=== PATIENT | female | born 1975 ===

== ENCOUNTER 2023-06-16 12:08 | Outpatient (CLI) | payer OTHER, SELFPAY ==
--- NOTE | 2023-06-16 12:13 | US_ITS ---
WS: [id number] ULTRASOUND ABDOMEN CLINICAL INFORMATION: ABDOMINAL PAIN COMPARISON: None. FINDINGS: Liver Size: Upper limits of normal Craniocaudal length: 15.6 cm. Echogenicity: Coarse and echogenic Surface nodularity: None. Mass (size and location): None. Bile ducts Intrahepatic ducts: Normal. Common bile duct diameter: 0.5 cm. Gallbladder Prior cholecystectomy. Pancreas Normal as visualized. Spleen Splenomegaly: None. Craniocaudal length: 10.2 cm. Right kidney: Normal. Hydronephrosis: None. Size: 9.1 cm x 5.4 cm x 5.9 cm Left kidney: Normal. Hydronephrosis: None. Size: 10.4 cm x 4.7 cm x 5.6 cm. Abdominal aorta and IVC Visualized portions are normal. Ascites: None. IMPRESSION: 1. Prior cholecystectomy. Normal common bile duct. 2. Liver size upper limits of normal. Coarse hepatic echogenicity likely due to fatty infiltration 3. No hydronephrosis in either kidney. 4. Normal spleen.
== END 2023-06-16 12:09 | disposition home or self-care (01) ==
LOC: RAD 12:09
PROVIDERS: PCP Internal Medicine; Visit Provider Family Medicine
DX: R10.9 Unspecified abdominal pain (principal); Z90.49 Acquired absence of other specified parts of digestive tract
CPT/HCPCS: 76700

== ENCOUNTER 2023-07-19 15:05 | Outpatient (CLI) | payer OTHER, SELFPAY ==
--- NOTE | 2023-07-19 15:09 | MR_ITS ---
WS: [id number] MRI LUMBAR SPINE NONCONTRAST HISTORY: RADICULOPATHY/SCIATICA/DORSALGIA COMPARISON: None available. TECHNIQUE: Sagittal and axial multisequence imaging is submitted. Small disc osteophytes in the cervical spine. Slight encroachment at C6-7 upon the cervical cord. The re additional thoracic spine central disc protrusions. There may be slight cord contact at several le vels including T5-6. No cord compression. Normal lumbar alignment with no compression fractures or marrow edema. Disc spaces and vertebral body heights are well-preserved. Conus terminates normally at L1-2 disc level. L1-L2: Normal. L2-L3: Mild annular disc bulging with ligamentum flavum and facet arthritis. Mild encroachment upon t he subarticular recesses. Mild bilateral subarticular recess stenosis. L3-L4: Mild annular disc bulging with mild ligamentum flavum and facet arthritis. There is encroachme nt upon the ventral thecal sac and the subarticular recesses. Moderate central and bilateral subartic ular recess and mild foraminal stenosis. There is contact on the traversing L4 nerve roots. Mild isac tional contact without displacement on the exiting L3 nerve roots. L4-L5: Mild annular disc bulging with osteophytic ridging, facet and ligamentum flavum disease. Sever e central and bilateral subarticular recess stenosis and mild foraminal stenosis. There is significan t displacement and compression on the traversing L5 nerve roots. Mild contact on the exiting L4 nerve roots. L5-S1: Mild annular disc bulging and facet arthritis. There is mild disc contact on the RIGHT S1 nerv e root. Mild to moderate bilateral foraminal stenosis. There does appear to be a shallow RIGHT forami nal disc protrusion. IMPRESSION: 1. L4-5: Severe central, bilateral subarticular recess and mild foraminal stenosis. Most significant disc contact on the traversing L5 nerve roots. 2. L5-S1: Mild to moderate bilateral foraminal stenosis. Mild disc contact on the RIGHT S1 nerve luz elena t. 3. L3-4: Moderate central and bilateral subarticular recess stenosis with mild foraminal stenosis. T here is disc contacting the L4 and L3 nerve roots. 4. L2-3: Mild bilateral subarticular recess stenosis. 5. No fractures. 6. Multilevel stenosis is due to combination of the disc, osteophyte and facet disease.
== END 2023-07-19 15:06 | disposition home or self-care (01) ==
LOC: RAD 15:06
PROVIDERS: PCP Internal Medicine; Visit Provider Family Medicine
DX: M54.16 Radiculopathy, lumbar region (principal); M48.07 Spinal stenosis, lumbosacral region; M48.061 Spinal stenosis, lumbar region without neurogenic claudication
CPT/HCPCS: 72148